=== PATIENT | female | born 1955 | race Hispanic/Latino ===

== ENCOUNTER 2016-04-08 10:44 | Outpatient (CLI) | payer BC ==
--- NOTE | 2016-04-09 17:58 | Magnetic Resonance Report ---
MR scan of the cranium was performed with and without contrast. Pulse sequences included: 1. T1 weighted sagittal and axial images without contrast and T1 axial images with contrast as well as reformatted sagittal and coronal images with contrast 2. T2 weighted axial and coronal images 3. FLAIR axial images 4. Diffusion-weighted axial images 5. Apparent diffusion coefficient images 6. Gradient echo axial images Views of the posterior fossa showed a normal craniocervical junction. Cerebellar pontine angles were normal with normal seventh-eighth nerve complexes. Brainstem and cerebellum were normal. The ventricular system showed no dilatation or distortion. Images of the hemispheres showed minimal areas of increased signal in the periventricular white matter consistent with araiosis. Sinuses, pituitary, flow voids in the jena of [place], orbits, and basal ganglia were normal. There are no abnormal areas of enhancement with contrast. Impression: Normal MR scan of the cranium with and without contrast except for mild araiosis
== END 2016-04-08 10:45 | disposition home or self-care (01) ==
LOC: SPVIMAG 10:44
PROVIDERS: ATTEND Specialist
DX: R51 Headache (principal)
CPT/HCPCS: 70553; A9577